=== PATIENT | male | born 1945 | race Caucasian/White ===

== ENCOUNTER → 2016-08-22 | Day surgery (SDC) | payer OTHER ==
[~2016-08-22] MED LIST: FINASTERIDE5 MG PO; FISH OIL 10001000 MG PO; FLOMAX 0.4 MG0.4 MG PO; MOBIC7.5 MG PO; NORVASC 5 MG TAB5 MG PO; PRAVACHOL80 MG PO; VIAGRA100 MG PO; VITAMIN D50000 UNIT PO
== END | disposition home or self-care (01) ==
LOC: OR 07:20
PROVIDERS: Surgery
PROC: 0DJD8ZZ Inspection of Lower Intestinal Tract, Via Natural or Artificial Opening Endoscopic (ICD-10-PCS; principal; 2016-08-22 08:15)
DX: Z12.11 Encounter for screening for malignant neoplasm of colon (principal); K57.30 Diverticulosis of large intestine without perforation or abscess without bleeding; I10 Essential (primary) hypertension; N40.0 Benign prostatic hyperplasia without lower urinary tract symptoms; M19.90 Unspecified osteoarthritis, unspecified site; Z80.0 Family history of malignant neoplasm of digestive organs; Z90.49 Acquired absence of other specified parts of digestive tract; Z98.52 Vasectomy status; Z98.890 Other specified postprocedural states
CPT/HCPCS: J7120